=== PATIENT | male | born 2000 | race African-American/Black ===

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

== ENCOUNTER 2021-03-25 09:32 | Emergency (ER) | payer OTHER ==
[~2021-03-25] VITALS: Ht 177.8 cm; Wt 99.8 kg
[2021-03-25 14:59] VITALS: BP 134/65
== END 2021-03-25 14:59 | disposition left against medical advice (07) ==
LOC: M.ERS 09:32
DX: R42 Dizziness and giddiness (principal); Z20.822 Contact with and (suspected) exposure to COVID-19; R11.10 Vomiting, unspecified; Z53.21 Procedure and treatment not carried out due to patient leaving prior to being seen by health care provider